=== PATIENT | male | born 1995 | race Caucasian/White ===

== ENCOUNTER 2019-07-26 07:38 | Emergency (ER) | payer MEDICAID, OTHER ==
[~2019-07-26] VITALS: Ht 170.2 cm; Wt 63.7 kg
[~2019-07-26 07:38] MED LIST: NO HOME MEDS; PRED20TA PO
[2019-07-26 07:45] VITALS: BP 111/82
[2019-07-26] MEDS ORDERED: NO HOME MEDS (07:56)
[2019-07-26] MEDS ORDERED: PENI500T2 PO (08:18)
== END 2019-07-26 08:25 | disposition home or self-care (01) ==
LOC: ER 07:38
DX: K02.9 Dental caries, unspecified (principal); Z79.899 Other long term (current) drug therapy
CPT/HCPCS: 99283